=== PATIENT | male | born 1995 | race Caucasian/White ===

== ENCOUNTER 2025-02-13 05:30 | Day surgery (SDC) | payer BC ==
[2025-02-06 09:41] VITALS: BMI 30.3
[2025-02-13] MEDS ORDERED: PROPOFOL 40 ML ONE (08:21)
[2025-02-13] MEDS ORDERED: Lidocaine 1% PF 5 ML VIAL ONE (08:21)
[2025-02-13] MEDS ORDERED: PROPOFOL 20 ML ONE (09:05)
== END 2025-02-13 09:50 | disposition home or self-care (01) ==
LOC: CSHSDC 05:30
PROVIDERS: ATTEND Surgery
PROC: 0DJD8ZZ Inspection of Lower Intestinal Tract, Via Natural or Artificial Opening Endoscopic (ICD-10-PCS; principal; 2025-02-13)
DX: K64.8 Other hemorrhoids (principal); K57.30 Diverticulosis of large intestine without perforation or abscess without bleeding
CPT/HCPCS: J2704